=== PATIENT | female | born 1955 | race Caucasian/White ===

== ENCOUNTER 2016-11-01 10:13 | Emergency (ER) | payer OTHER ==
[~2016-11-01] VITALS: Ht 160 cm; Wt 104.0 kg
[2016-11-01 10:16] VITALS: Ht 160 cm; Wt 104.0 kg
[2016-11-01] MEDS ORDERED: SOD CHLORIDE 0.9% 500 ML IV STA (12:15)
[2016-11-01] MEDS ORDERED: morphine 4 MG/ML VIAL IV STA (12:15)
[2016-11-01] MEDS ORDERED: ONDANSETRON 4 MG INJ IV STA (12:15)
--- NOTE | 2016-11-01 12:34 | ERA ---
ER Documentation Chief Complaint Date/Time DATE: 11/01/16 TIME: 12:33 Chief Complaint back pain radiating to lower rt leg and c/o chest pain HPI 61-year-old female who presents with family member. The patient has multiple complaints today for greater than 1 year. The patient describes lumbar back pain radiating to the majority of the right lower extremity that is worse with movement and worse when straightening her leg for approximately 1 year. No bowel or bladder incontinence and/or retention. She also describes chest pain that she has had daily for greater than 1 year that is left-sided and difficult for her to characterize. She denies any pleuritic pain, no fevers or chills, no nausea or vomiting. The symptoms have not changed today but have been slightly worse in intensity over the last 3 weeks. ROS All systems reviewed and are negative except as per history of present illness. Medications Home Meds Active Scripts Meclizine Hcl* (Meclizine Hcl*) 25 Mg Tablet, 25 MG PO Q8H Y for DIZZINESS, #30 TAB Prov:JEAN PAUL BLOUNT MD 11/01/16 Docusate Sodium* (Colace*) 100 Mg Capsule, 100 MG PO TID Y for CONSTIPATION, # 30 CAP Prov:JEAN PAUL BLOUNT MD 11/01/16 Tramadol HCl (Tramadol HCl) 50 Mg Tablet, 50 MG PO Q6 Y for PAIN, #20 TAB Prov:JEAN PAUL BLOUNT MD 11/01/16 Reported Medications Atenolol* (Atenolol*) 25 Mg Tablet, 25 MG PO DAILY, #30 TAB 11/01/16 Aspirin (Low Dose Aspirin) 81 Mg Tablet.dr, 81 MG PO DAILY, #30 TAB 11/01/16 Levothyroxine Sodium* (Levoxyl*) 88 Mcg Tablet, 88 MCG PO BEFORE BREAKFAST, #30 TAB 11/01/16 Allergies Allergies: Coded Allergies: No Known Allergy (Unverified , 11/01/16) FmHx Family History: No diabetes Physical Exam Vitals Vital Signs Date Time Temp Pulse Resp B/P Pulse Ox O2 Delivery O2 Flow Rate FiO2 11/01/16 14:00 63 17 125/67 100 Room Air 11/01/16 10:16 98.7 64 20 195/93 97 Physical Exam General: Well developed, well nourished, no acute distress Head: Normocephalic, atraumatic. Eyes: Pupils equally reactive, EOM intact ENT: Moist mucous membranes Neck: Supple, no lymphadenopathy Respiratory: Lungs clear bilaterally, no distress Cardiovascular: RRR, no murmurs, rubs, or gallops Abdominal: Soft, non-tender, non-distended, no peritoneal signs : Deferred MSK: No edema, no unilateral swelling, 5/5 strength, no pulse deficits Neurologic: Alert and oriented, moving all extremities, normal speech, no focal weakness, no cerebellar signs Skin: No rash Psych: Normal mood Result Diagram: 11/01/16 1200 11/01/16 1200 Results 24 hrs Laboratory Tests Test 11/01/16 12:00 White Blood Count 7.210^3/ul Red Blood Count 4.6610^6/ul Hemoglobin 13.4g/dl Hematocrit 41.9% Mean Corpuscular Volume 89.9fl Mean Corpuscular Hemoglobin 28.8pg Mean Corpuscular Hemoglobin Concent 32.0g/dl Red Cell Distribution Width 13.5% Platelet Count 32392^3/UL Mean Platelet Volume 9.5fl Neutrophils % 63.1% Lymphocytes % 28.5% Monocytes % 6.7% Eosinophils % 1.0% Basophils % 0.6% Nucleated Red Blood Cells % 0.0/100WBC Neutrophils # 4.510^3/ul Lymphocytes # 2.010^3/ul Monocytes # 0.510^3/ul Eosinophils # 0.110^3/ul Basophils # 0.010^3/ul Nucleated Red Blood Cells # 0.010^3/ul Prothrombin Time 12.8Sec Prothrombin Time Ratio 1.0 INR International Normalized Ratio 0.96 Activated Partial Thromboplast Time 29.9Sec Sodium Level 145mmol/L Potassium Level 4.7mmol/L Chloride Level 105mmol/L Carbon Dioxide Level 27mmol/L Anion Gap 18 Blood Urea Nitrogen 17mg/dl Creatinine 0.63mg/dl Glucose Level 105mg/dl Calcium Level 9.4mg/dl Total Bilirubin 0.6mg/dl Direct Bilirubin 0.00mg/dl Indirect Bilirubin 0.6mg/dl Aspartate Amino Transf (AST/SGOT) 25IU/L Alanine Aminotransferase (ALT/SGPT) 36IU/L Alkaline Phosphatase 65IU/L Troponin I < 0.012ng/ml B-Type Natriuretic Peptide 49PG/ML Total Protein 7.9g/dl Albumin 4.4g/dl Globulin 3.50g/dl Albumin/Globulin Ratio 1.25 Lipase 96U/L Current Medications Medications (Trade) Dose Ordered Sig/Sarah Route PRN Reason Start Time Stop Time Status Last Admin Dose Admin Sodium Chloride (NS) 500 ml @ 500 mls/hr Q1H STAT IV 11/01/16 12:15 11/01/16 13:14 DC 11/01/16 12:31 Morphine Sulfate (morphine) 4 mg ONCE STAT IV 11/01/16 12:15 11/01/16 12:18 DC 11/01/16 12:32 Ondansetron HCl (Zofran Inj) 4 mg ONCE STAT IV 11/01/16 12:15 11/01/16 12:18 DC 11/01/16 12:32 Procedures/MDM EKG, MONITORS, & DIAGNOSTIC IMAGING: EKG: I reviewed and interpreted a 12-lead EKG. Rhythm: Normal sinus rhythm Ectopy: None Intervals: No abnormalities ST segments: No elevations or depressions T waves: No contiguous inversions Chest x-ray: I reviewed and interpreted a 1 view of the chest Mediastinum: No enlargement Cardiac silhouette: No cardiomegaly Airspace: Clear lung crowley bilaterally without evidence of pneumothorax Bones: No evidence of fracture CT lumbar spine: IMPRESSION: 1. No acute abnormality of the lumbar spine. No evidence of fracture. 2. Moderate degenerative disc disease at L4-5 asymmetric to the right with 3 mm disc/osteophyte complex and subsequent severe narrowing of both lateral recesses and severe bilateral neural foraminal narrowing, right worse than left. There is mild narrowing of the lumbar thecal sac at this level. 3. 3-4 mm annular disc bulge at L3-4 with subsequent moderate central stenosis , severe narrowing of both lateral recesses and moderate bilateral neural foraminal narrowing. RPTAT: HGAS Lower extremity duplex: negative for DVT LAB INTERPRETATION: No leukocytosis, no evidence of hepatobiliary obstruction, negative troponin MEDICAL DECISION MAKING: The patient presents with multiple complaints including chest pain, back pain for greater than 1 year. It does not appear that things have changed recently. There is unclear etiology. Her back pain seems very consistent with lumbar radiculopathy without signs or symptoms of cauda equina or cord compression, no evidence of epidural abscess or hematoma. The chest pain is very atypical, nonexertional and constant for greater than 1 year, she has this chest pain daily. Unclear etiology. Low concern for PE or dissection, very low concern for acute coronary syndrome. Given the patient's chronicity of symptoms it is unlikely that the patient is having an acute medical condition currently. I attempted to set expectations for the patient and family member that we may not have an answer to her symptoms today. The patient may certainly require outpatient workup with a primary care physician. The patient is hesitant to follow-up with primary care physicians. She states that she only goes to refill her medications. ER COURSE: The patient's pain and symptoms are improved. The patient is steady on her feet and ambulatory. Her diagnostic imaging confirms likely lumbar radiculopathy. Again, no physical findings concerning for cauda equina or cord compression. Her EKG, troponin are all normal. Again, given the chronicity of symptoms, the patient is likely a good candidate for outpatient management. Physical therapy, weight loss, exercise were advised. Outpatient MRI imaging may be necessary for her lumbar radiculopathy. Discussed pain management at home. The patient would like to try tramadol. Colace provided. She also would like a prescription for chronic vertigo that is unchanged. I kept the patient and/or family informed of laboratory and diagnostic imaging results throughout the emergency room course. DISPOSITION PLAN: We discussed follow up with the patient's primary care doctor within 24 to 48 hours as needed. We also discussed return to the emergency room for worsening symptoms or worsening condition. Outpatient referral: Primary care Discharge Medications: Tramadol, Colace, meclizine We discussed the use of narcotics including avoidance of operating heavy machinery and driving as well as its addictive properties. Departure Diagnosis: Primary Impression: Atypical chest pain Additional Impression: Lumbar radiculopathy, chronic Condition: Stable JEAN PAUL BLOUNT MD November 01, 2016 12:34
[2016-11-01] MEDS ORDERED: LEVO88TA42 PO (12:40)
[2016-11-01] MEDS ORDERED: ATEN-51 PO (12:41)
[2016-11-01] MEDS ORDERED: ASPI-664 PO (12:41)
[2016-11-01 12:55] LABS: ADD SCAN DIFF NO
[2016-11-01 12:58] LABS: BASOPHILS % 0.6 % (0.0-2.0); EOSINOPHILS # 0.1 10^3/ul (0.0-0.5); HEMATOCRIT 41.9 % (37.0-47.0); HEMOGLOBIN 13.4 g/dl (12.0-16.0); LYMPHOCYTES % 28.5 % (15.0-51.0); MEAN CORPUSCULAR HEMOGLOBIN 28.8 pg (29.0-33.0); MEAN CORPUSCULAR VOLUME 89.9 fl (82.0-101.0); MEAN PLATELET VOLUME 9.5 fl (7.4-10.4); MONOCYTE # 0.5 10^3/ul (0.3-0.9); MONOCYTES % 6.7 % (0.0-11.0); NEUTROPHIL # 4.5 10^3/ul (1.6-7.5); NEUTROPHILS % 63.1 % (39.0-77.0); PLATELET COUNT 265 10^3/UL (140-415); RED BLOOD COUNT 4.66 10^6/ul (4.20-5.40); RED CELL DISTRIBUTION WIDTH 13.5 % (11.5-14.5); WHITE BLOOD COUNT 7.2 10^3/ul (4.8-10.8)
--- NOTE | 2016-11-01 13:15 | RADRPT ---
PROCEDURE: XR Chest. CLINICAL INDICATION: Abdominal pain TECHNIQUE: Chest AP portable. COMPARISON: No comparison available. FINDINGS: The mediastinal structures are unremarkable. The heart is normal in size and configuration. The pu lmonary vascularity is normal. The lung crowley are unremarkable. No consolidation is identified. The pleural spaces are unremarkable. The axial skeleton is unremarkable. IMPRESSION: No active intrathoracic disease. RPTAT: HGDB .Ras Archibald MD, MD Date Time Electronically viewed and signed by .Ras Archibald MD, on 11/01/2016 13:14 .B/
[2016-11-01 13:18] LABS: CHLORIDE 105 mmol/L (97-110); INR 0.96; PROTIME 12.8 Sec (12.2-14.2)
[2016-11-01 13:19] LABS: PARTIAL THROMBOPLASTIN TIME 29.9 Sec (25.0-35.0); POTASSIUM 4.7 mmol/L (3.5-5.1); SODIUM 145 mmol/L (135-144)
[2016-11-01 13:21] LABS: ALANINE AMINOTRANSFERASE 36 IU/L (13-69); ALBUMIN/GLOBULIN RATIO 1.25; ALKALINE PHOSPHATASE 65 IU/L (42-121); ANION GAP 18 (8-16); ASPARTATE AMINO TRANSFERASE 25 IU/L (15-46); BLOOD UREA NITROGEN 17 mg/dl (7-20); CARBON DIOXIDE 27 mmol/L (21-31); CREATININE 0.63 mg/dl (0.44-1.00); GLUCOSE 105 mg/dl (70-220); TOTAL PROTEIN 7.9 g/dl (6.1-8.1)
[2016-11-01 13:22] LABS: CALCIUM 9.4 mg/dl (8.4-10.2)
[2016-11-01 13:30] LABS: B-TYPE NATRIURETIC PEPTIDE 49 PG/ML (0-125)
[2016-11-01 13:33] LABS: BILIRUBIN,TOTAL 0.6 mg/dl (0.2-1.3)
[2016-11-01 13:34] LABS: ALBUMIN 4.4 g/dl (3.3-4.9); BILIRUBIN,INDIRECT 0.6 mg/dl (0-1.1); TROPONIN-I < 0.012 ng/ml (0.00-0.12)
--- NOTE | 2016-11-01 13:48 | RADRPT ---
PROCEDURE: US venous lower extremities bilaterally. CLINICAL INDICATION: Bilateral lower extremity swelling. TECHNIQUE: Multiple longitudinal and transverse images of the bilateral lower extremity veins were obtained with botello scale and color Doppler imaging. 2D grayscale imaging with compression, color D oppler flow, and augmentation was performed. The calf veins were interrogated as well. COMPARISON: None available. FINDINGS: The common femoral, superficial femoral, and popliteal veins are compressible bilaterally. There is normal color Doppler flow within the vessels. Normal waveforms are visualized and there is normal response to augmentation. The calf veins are visualized and are equally unremarkable. IMPRESSION: 1. No evidence of deep vein thrombosis in the lower extremities bilaterally. RPTAT: GG .Tristan Cintron MD, MD Date Time Electronically viewed and signed by .Tristan Cintron MD, MD on 11/01/2016 13:48 .P/
[2016-11-01 14:00] VITALS: BP 125/67; PULSE 63; RESP 17
--- NOTE | 2016-11-01 14:00 | RADRPT ---
PROCEDURE: CT Lumbar Spine without contrast. CLINICAL INDICATION: Lumbar spine pain radiating to the right lower extremity. TECHNIQUE: The study was performed on a multislice multidetector CT scanner. Spiral axial 1 mm im ages were obtained through the lumbar spine without intravenous contrast. 1 or more of the following dose reduction techniques were utilized: Automated exposure control, adjustment of the mA and/or k V according to patient's size, iterative reconstruction technique. Coronal and sagittal reformation s were obtained. The images were reviewed on a PACS workstation. RADIATION DOSE: CTDIvol: 38.4 mGyDLP: 1195.0 mGy-cm COMPARISON: No prior studies are available for comparison. FINDINGS: There 5 lumbar-type vertebral bodies. There is a mild left convex scoliosis centered at L4-5 due to asymmetric right-sided disc-space height loss. There are diffuse anterior osteophytes with moderat e narrowing of the right aspect of the L4-5 disc-space. There are associated moderate discogenic en dplate changes at this level. The vertebral body heights are maintained. The marrow density is wit hin normal limits. There is no evidence of fracture or dislocation. The vertebral body heights and marrow density are normal. The paraspinal soft tissues unremarkable. No significant paraspinal so ft tissue swelling. L1-L2: The posterior margin of the disc is normal in appearance. No significant disc bulge or prot rusion is evident. The central canal and neural foramina are adequately patent. L2-L3: There is a 1-2 mm annular disc bulge. The thecal sac and lateral recesses are patent. Ther e is mild bilateral facet spondylosis. The neural foramina are patent. L3-L4: There is a 3-4 mm annular disc bulge. There is mild prominence of the dorsal epidural fat m easuring 5 mm. There is moderate narrowing of the thecal sac measuring 6.8 mm midline AP diameter. There is severe narrowing of both lateral recesses. There is moderate bilateral neural foraminal n arrowing. L4-L5: There is a 3 mm posterior disc/osteophyte complex asymmetric to the foraminal regions, right worse than left. The thecal sac measures 8.5 mm midline AP diameter. There is severe narrowing of both lateral recesses, right worse than left. There is severe bilateral neural foraminal narrowing , right worse than left. L5-S1: There is a 2 mm annular disc bulge. The thecal sac and lateral recesses are patent. There is mild bilateral facet spondylosis. There is mild bilateral neural foraminal narrowing. IMPRESSION: 1. No acute abnormality of the lumbar spine. No evidence of fracture. 2. Moderate degenerative disc disease at L4-5 asymmetric to the right with 3 mm disc/osteophyte com plex and subsequent severe narrowing of both lateral recesses and severe bilateral neural foraminal narrowing, right worse than left. There is mild narrowing of the lumbar thecal sac at this level. 3. 3-4 mm annular disc bulge at L3-4 with subsequent moderate central stenosis, severe narrowing of both lateral recesses and moderate bilateral neural foraminal narrowing. RPTAT: HGAS .Francesco Sy MD, Date Time Electronically viewed and signed by .Francesco Sy MD, on 11/01/2016 14:00 .S/
[2016-11-01] MEDS ORDERED: MECL-77 PO (14:10)
[2016-11-01] MEDS ORDERED: DOCU-144 PO (14:10)
[2016-11-01] MEDS ORDERED: TRAM50TA2 PO (14:10)
[2016-11-01 14:55] LABS: ADD UMIC YES; URINE BILIRUBIN (Dip) NEGATIVE (NEGATIVE); URINE BLOOD (Dip) TRACE (NEGATIVE); URINE COLOR LT. YELLOW (YELLOW); URINE GLUCOSE (Dip) NEGATIVE (NEGATIVE); URINE KETONES (Dip) NEGATIVE (NEGATIVE); URINE LEUKOCYTE ESTERASE (Dip) NEGATIVE (NEGATIVE); URINE NITRITE (Dip) NEGATIVE (NEGATIVE); URINE TOTAL PROTEIN (Dip) NEGATIVE (NEGATIVE); URINE UROBILINOGEN (Dip) 0.2 E.U./dL (0.1-1.0)
[2016-11-01 16:09] LABS: SQUAMOUS EPITHELIAL CELL,UR MANY
[2016-11-01 16:10] LABS: BACTERIA,URINE FEW
== END 2016-11-01 14:43 | disposition home or self-care (01) ==
LOC: E/R 10:13
DX: R07.89 Other chest pain (principal); M54.16 Radiculopathy, lumbar region; I10 Essential (primary) hypertension; E11.9 Type 2 diabetes mellitus without complications; Z79.82 Long term (current) use of aspirin
CPT/HCPCS: 36415; 71010; 72131; 80053; 81001; 83690; 83880; 84484; 85025; 85610; 85730; 93005; 93970; 96374; 96375; J2270; J2405; J7040; Z7502; 81003